=== PATIENT | male | born 1970 | race Asian ===

== ENCOUNTER 2018-04-29 19:56 | Emergency (ER) | payer MEDICAID ==
[~2018-04-29] VITALS: Ht 167.6 cm; Wt 63.6 kg
[2018-04-29] MEDS ORDERED: KETOROLAC TROMETHAMINE 60 MG/2 ML VIAL IM ONE (22:30)
[2018-04-29 23:06] VITALS: BP 132/78
== END 2018-04-29 23:25 | disposition home or self-care (01) ==
LOC: EMS 19:57
DX: S05.11XA Contusion of eyeball and orbital tissues, right eye, initial encounter (principal); S70.311A Abrasion, right thigh, initial encounter; R07.89 Other chest pain; Y04.2XXA Assault by strike against or bumped into by another person, initial encounter; Y93.01 Activity, walking, marching and hiking; Y92.488 Other paved roadways as the place of occurrence of the external cause; Y99.8 Other external cause status
CPT/HCPCS: 70450; 96372; 99284; J1885